=== PATIENT | female | born 1990 | race Caucasian/White ===

== ENCOUNTER 2023-12-22 05:21 | Emergency (ER) | payer OTHER ==
[2023-12-22 05:29] VITALS: BP 139/79; PULSE 82; RESP 18; TEMP 97.8; BMI 29.5
[2023-12-22] MEDS ORDERED: ONDANSETRON *ODT* 4 MG TABLET ONE (06:24)
[2023-12-22] MEDS: ONDANSETRON *ODT* 4 MG TABLET SL ONE (06:26)
== END 2023-12-22 06:39 | disposition home or self-care (01) ==
LOC: JER 05:21
DX: M54.2 Cervicalgia (principal); R51.9 Headache, unspecified; M79.10 Myalgia, unspecified site; V43.02XA Car driver injured in collision with other type car in nontraffic accident, initial encounter
CPT/HCPCS: 99283-25; Q0162